=== PATIENT | male | born 1940 | race Caucasian/White ===

== ENCOUNTER → 2019-10-04 09:30 | Outpatient (CLI) | payer OTHER, SELFPAY ==
--- NOTE | ~2019-10-04 | XR_ITS ---
EXAMINATION: XR ankle RT min 3V DATE: 10/04/2019 09:56 INDICATION: Right ankle pain. TECHNIQUE: 4 views of right ankle were obtained. COMPARISON: Right tibia and fibula radiographs and right ankle radiographs 11/20/2003 FINDINGS: Bone alignment is normal. There is ankylosis of the distal tibia, fibula, and talus. No fra cture. There is moderate to severe osteoarthritis of the talonavicular joint and subtalar joint and m ild osteoarthritis of some of the other midfoot joints. Osteopenia is noted. There are surgical clips in the lower leg. 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 A soft tissue co ntour abnormality of the medial lower leg may be surgical change. IMPRESSION: 1. Polyarticular osteoarthritis. 2. Ankylosis of distal tibia, fibula, and talus. Reviewed, dictated and finalized at location A.
== END ==
PROVIDERS: PCP Physician Assistant; Visit Provider Physician Assistant
DX: M19.071 Primary osteoarthritis, right ankle and foot (principal)
CPT/HCPCS: 73610

== ENCOUNTER → 2020-05-22 15:56 | Outpatient (CLI) | payer OTHER, SELFPAY ==
--- NOTE | ~2020-05-22 | XR_ITS ---
XR ankle RT min 3V, XR foot RT min 3V, XR tibia fibula RT 2V 05/22/2020 16:29 Indication: Right lower extremity pain status post fall Procedure: 2 views right tibia/fibula, 4 views right ankle and 4 views right foot Comparison: 10/04/2019 and 11/20/2003 Findings: Osseous alignment is stable. There is ankylosis of the distal tibia, fibula and talus. No a cute fracture is identified. Moderate subcutaneous edema. Osteopenia. There is osteoarthritis of the talonavicular and subtalar joints. Mild osteoarthritis of the midfoot. There is a vascular stent in t he popliteal region. There is heterotopic ossification in the soft tissues just above the ankle level . There is focal anterior soft tissue swelling overlying the distal tibia. Mild osteoarthritis of the MTP joint with hallux valgus. There are degenerative calcaneal enthesophytes. Impression: 1: No acute fracture. Reviewed, dictated and finalized at location A. GER PHOTO Impression: 1: No acute fracture. Impression: 1: No acute fracture. Impression: 1: No acute fracture.
== END ==
PROVIDERS: PCP Physician Assistant; Visit Provider Physician Assistant
DX: M79.671 Pain in right foot (principal); M25.571 Pain in right ankle and joints of right foot
CPT/HCPCS: 73590; 73610; 73630

== ENCOUNTER → 2024-08-01 13:38 | Outpatient (CLI) | payer OTHER, SELFPAY ==
--- NOTE | ~2024-08-01 | XR_ITS ---
Clinical Indication: Cough PA and lateral views of the chest: Comparison: None Findings: There is extensive chronic interstitial disease in the lungs. No definite acute pulmonary p athology.. Cardiomediastinal silhouette is within normal limits. Bones and soft tissues are unremark able. Impression: Extensive chronic interstitial disease. Reviewed, dictated and finalized at location . Impression: Extensive chronic interstitial disease.
== END ==
LOC: EXPCRAD 13:41
PROVIDERS: PCP Physician Assistant; Visit Provider Physician Assistant
DX: J84.89 Other specified interstitial pulmonary diseases (principal)
CPT/HCPCS: 71046